=== PATIENT | female | born 1935 | race Caucasian/White ===

== ENCOUNTER 2024-10-14 13:35 | Inpatient (IN) | payer MEDICARE, BC ==
[~2024-10-14] VITALS: Ht 165.1 cm; Wt 59.4 kg
[2024-10-14 13:55] LABS: BASOPHILS % (AUTO) 0.2 % (0.0-2.0); EOSINOPHILS % (AUTO) 0.4 % (0.0-7.0); HEMATOCRIT 42.2 % (31.2-41.9); HEMOGLOBIN 14.2 g/dL (10.9-14.3); LYMPHOCYTES # (AUTO) 0.8 K/uL (0.8-4.8); MEAN CORPUSCULAR HEMOGLOBIN 32.9 uug (24.7-32.8); MEAN CORPUSCULAR HGB CONC 34 g/dL (32.3-35.6); MEAN CORPUSCULAR VOLUME 97.5 fL (75.5-95.3); MONOCYTES # (AUTO) 0.5 K/uL (0.1-1.30); NEUTROPHILS # (AUTO) 6.5 K/uL (1.8-8.9); NEUTROPHILS % (AUTO) 83.4 % (38.5-71.5); PLATELET COUNT (AUTO) 132 K/uL (179-408); RED BLOOD CELL COUNT(AUTO) 4.33 MIL/uL (3.63-4.92); RED CELL DISTRIBUTION WIDTH 12.9 % (12.3-17.7); WHITE BLOOD COUNT (AUTO) 7.8 K/uL (3.8-11.8)
[2024-10-14 13:58] LABS: DIFFERENTIAL COMMENT 1
[2024-10-14 14:02] LABS: CALCIUM 8.4 mg/dL (8.5-10.1); CARBON DIOXIDE 30 mmol/L (21-32); CHLORIDE 106 mmol/L (98-107); CREATININE 0.8 mg/dL (0.6-1.3); GLUCOSE 125 mg/dL (74-106); POTASSIUM 4.1 mmol/L (3.5-5.1); SODIUM SERUM 142 mmol/L (136-145); UREA NITROGEN, BLOOD 20 mg/dL (7-18)
[2024-10-14 14:16] LABS: NT-PRO BNP 914 pg/mL (0-125)
[2024-10-14 14:21] LABS: ABG BASE EXCESS 3.5 mmol/L (-2.0-3.0); ABG HCO3 27.9 mmol/L (21.0-28.0); ABG PCO2 41.6 mmHg (32.0-45.0); ABG PH 7.445 (7.350-7.450); ABG PO2 65.4 mmHg (83.0-108.0); ABG SITE RIGHT RADIAL; ABG TOTAL HEMOGLOBIN 14.9 G/dL (12.0-16.0); AaDO2 93.6 mmHg; COHb 0.9 % (0.5-1.5); MetHb 0.1 % (0.0-1.5); O2Hb 92.5 % (94.0-98.0)
[2024-10-14] MEDS ORDERED: CHOLECALCIFEROL 1,000 UNIT TABLET ONE (14:53)
[2024-10-14] MEDS: CHOLECALCIFEROL 1,000 UNIT TABLET PO SCH (14:57)
[2024-10-14] MEDS ORDERED: FUROSEMIDE 20 MG/2 ML VIAL ONE (15:35)
[2024-10-14] MEDS: FUROSEMIDE 20 MG/2 ML VIAL IV ONE (15:39)
[2024-10-14] MEDS ORDERED: ONDANSETRON 4 MG/2 ML VIAL IV PRN (17:15)
[2024-10-14] MEDS ORDERED: MAGNESIUM HYDROXIDE 30 ML LIQUID UDC PO PRN (17:15)
[2024-10-14] MEDS ORDERED: FUROSEMIDE 40 MG/4 ML VIAL ONE (20:33)
[2024-10-14] MEDS: FUROSEMIDE 40 MG/4 ML VIAL IV SCH (20:34)
[2024-10-14 21:40] VITALS: BP 126/75; TEMP 98.4; O2SAT 94
[2024-10-15] VITALS (12 sets, daily range): BP systolic 111–137; BP diastolic 55–76; TEMP 98–99.3; O2SAT 86–97
[2024-10-15 07:02] LABS: BASOPHILS % (AUTO) 0.3 % (0.0-2.0); EOSINOPHILS % (AUTO) 0.3 % (0.0-7.0); HEMATOCRIT 43.1 % (31.2-41.9); HEMOGLOBIN 14.4 g/dL (10.9-14.3); LYMPHOCYTES # (AUTO) 1.1 K/uL (0.8-4.8); LYMPHOCYTES % (AUTO) 14.4 % (20.5-51.5); MEAN CORPUSCULAR HEMOGLOBIN 32.8 uug (24.7-32.8); MEAN CORPUSCULAR HGB CONC 34 g/dL (32.3-35.6); MEAN CORPUSCULAR VOLUME 97.9 fL (75.5-95.3); MONOCYTES # (AUTO) 0.6 K/uL (0.1-1.30); MONOCYTES % (AUTO) 7.2 % (0.0-11.0); NEUTROPHILS # (AUTO) 6.1 K/uL (1.8-8.9); NEUTROPHILS % (AUTO) 77.8 % (38.5-71.5); PLATELET COUNT (AUTO) 144 K/uL (179-408); WHITE BLOOD COUNT (AUTO) 7.8 K/uL (3.8-11.8)
[2024-10-15 07:13] LABS: DIFFERENTIAL COMMENT 1
[2024-10-15 07:15] LABS: CALCIUM 8.7 mg/dL (8.5-10.1); CARBON DIOXIDE 32 mmol/L (21-32); CHLORIDE 107 mmol/L (98-107); CREATININE 0.8 mg/dL (0.6-1.3); GLUCOSE 89 mg/dL (74-106); MAGNESIUM 2.1 mg/dL (1.8-2.4); PHOSPHOROUS 3.7 mg/dL (2.5-4.9); POTASSIUM 4.3 mmol/L (3.5-5.1); SODIUM SERUM 147 mmol/L (136-145); UREA NITROGEN, BLOOD 23 mg/dL (7-18)
[2024-10-15] MEDS ORDERED: ALBUTEROL SULFATE 2.5 MG/ 0.5 ML NEBU NEB PRN (13:00)
[2024-10-15] MEDS ORDERED: OSELTAMIVIR PHOSPHATE 75 MG CAPSULE PO SCH (13:00)
[2024-10-15] MEDS ORDERED: TEMA15CA PO (14:46)
[2024-10-15] MEDS ORDERED: LATA2.5D15 EACHEYE (14:46)
[2024-10-15] MEDS ORDERED: ROSU5TAB PO (14:46)
[2024-10-15] MEDS ORDERED: TRAZ-182 PO (14:46)
[2024-10-15] MEDS ORDERED: MONT10TA22 PO (14:46)
[2024-10-15] MEDS: GUAIFENESIN/DEXTROMETHORPHAN 5 ML UDC PO PRN (14:56)
[2024-10-15] MEDS: OSELTAMIVIR NG/GT 30 MG/5 ML LIQ PO SCH (14:56)
[2024-10-15] MEDS: methylPREDNISolone SOD SUCC 40 MG/ML VIAL IV SCH (14:56)
[2024-10-15] MEDS: ALBUTEROL SULFATE 2.5 MG/ 0.5 ML NEBU NEB SCH (18:17)
[2024-10-16] VITALS (11 sets, daily range): BP systolic 110–157; BP diastolic 58–72; TEMP 94.3–98; O2SAT 84–98
[2024-10-16 06:49] LABS: BASOPHILS % (AUTO) 0.1 % (0.0-2.0); HEMATOCRIT 43.3 % (31.2-41.9); HEMOGLOBIN 14.7 g/dL (10.9-14.3); LYMPHOCYTES # (AUTO) 0.5 K/uL (0.8-4.8); LYMPHOCYTES % (AUTO) 8.9 % (20.5-51.5); MEAN CORPUSCULAR HEMOGLOBIN 32.8 uug (24.7-32.8); MEAN CORPUSCULAR HGB CONC 34 g/dL (32.3-35.6); MEAN CORPUSCULAR VOLUME 96.5 fL (75.5-95.3); MONOCYTES # (AUTO) 0.2 K/uL (0.1-1.30); MONOCYTES % (AUTO) 3.3 % (0.0-11.0); NEUTROPHILS # (AUTO) 5.2 K/uL (1.8-8.9); NEUTROPHILS % (AUTO) 87.7 % (38.5-71.5); PLATELET COUNT (AUTO) 156 K/uL (179-408); RED BLOOD CELL COUNT(AUTO) 4.49 MIL/uL (3.63-4.92); RED CELL DISTRIBUTION WIDTH 13.2 % (12.3-17.7)
[2024-10-16 07:00] LABS: CALCIUM 8.7 mg/dL (8.5-10.1); CARBON DIOXIDE 33 mmol/L (21-32); CHLORIDE 104 mmol/L (98-107); CREATININE 0.8 mg/dL (0.6-1.3); GLUCOSE 177 mg/dL (74-106); SODIUM SERUM 142 mmol/L (136-145); UREA NITROGEN, BLOOD 28 mg/dL (7-18)
[2024-10-16 07:02] LABS: DIFFERENTIAL COMMENT 1
[2024-10-16] MEDS: REMEDY ESSENTIAL ZINC PASTE 113 GM TP PRN (08:58)
[2024-10-16] MEDS: ACETAMINOPHEN 325 MG TABLET PO PRN (09:00)
[2024-10-16] MEDS ORDERED: OSEL75CA PO (11:56)
[2024-10-16] MEDS ORDERED: METH4TAB3 PO (11:56)
== END 2024-10-16 16:00 | disposition home health service (06) | DRG 190 ==
LOC: ER 13:35 → TELE3 14:00
PROVIDERS: ADMIT Internal Medicine; ATTEND Internal Medicine
DX: J44.0 Chronic obstructive pulmonary disease with (acute) lower respiratory infection (principal); J10.01 Influenza due to other identified influenza virus with the same other identified influenza virus pneumonia; J96.01 Acute respiratory failure with hypoxia; J44.1 Chronic obstructive pulmonary disease with (acute) exacerbation; E83.51 Hypocalcemia; Z99.81 Dependence on supplemental oxygen; R79.89 Other specified abnormal findings of blood chemistry
CPT/HCPCS: 36415; 36600; 71045; 83605; 83735; 84100; 85025; 87040; 93307; 94640; G0378; J1940; J2919